=== PATIENT | female | born 1990 | race Caucasian/White ===

== ENCOUNTER → 2024-02-18 | Outpatient (REF) ==
[2024-02-18 10:55] LABS: HEMATOCRIT 47.6 % (36.0-47.0); HEMOGLOBIN 15.8 g/dl (12.0-15.5); MEAN CORPUSCULAR HEMOGLOBIN 29.5 pg (27.0-33.0); MEAN CORPUSCULAR HGB CONC 33.2 g/dl (32.0-36.5); MEAN CORPUSCULAR VOLUME 88.8 fl (80.0-96.0); PLATELET COUNT, AUTOMATED 348 10^3/uL (150-450); RED BLOOD COUNT 5.36 10^6/uL (4.00-5.40); WHITE BLOOD COUNT 11.7 10^3/uL (4.0-10.0)
[2024-02-18 11:22] LABS: BLOOD UREA NITROGEN 10 MG/DL (9-23); CALCIUM LEVEL 8.7 MG/DL (8.5-10.1); CARBON DIOXIDE LEVEL 28 MMOL/L (20-31); CHLORIDE LEVEL 105 MMOL/L (98-107); CHOLESTEROL LEVEL 231 MG/DL (<200); CHOLESTEROL RISK RATIO 7.12 (<5); CREATININE FOR GFR 0.56 MG/DL (0.55-1.30); GLOMERULAR FILTRATION RATE > 60.0 (>60); GLUCOSE, FASTING 151 MG/DL (60-100); HDL CHOLESTEROL 32.4 MG/DL (>40); LDL CHOLESTEROL 166.6 MG/DL (<100); NON-HDL-C 198.6 MG/DL; POTASSIUM SERUM 4.3 MMOL/L (3.5-5.1); SODIUM LEVEL 137 MMOL/L (136-145); TRIGLYCERIDES LEVEL 160 MG/DL (<150)
== END ==
LOC: M LAB 10:05
PROVIDERS: ATTEND Registered Nurse
DX: Z02.9 Encounter for administrative examinations, unspecified (principal)